=== PATIENT | female | born 1950 | race Caucasian/White ===

== ENCOUNTER → 2017-01-19 | Day surgery (SDC) | payer MEDICARE ==
--- NOTE | 2017-01-06 21:57 | CR ---
DATE OF CONSULTATION: 01/19/[address] Bear, Thank you for asking me to see Ms. Earlene Birch in consultation prior to her gynecologic surgery. As you know, Ms. Birch is a 66-year-old female with past medical history of breakthrough bleeding, hiatal hernia, gastroesophageal reflux disease (GERD), anxiety, who had presented earlier this year with recurrence of her breakthrough bleeding previously evaluated in 2012. She reports that she has had no further breakthrough bleeding since that time. An ultrasound was done and further evaluation was recommended by Dr. Bear. The patient denies any fevers or chills, chest pain or shortness of breath. She reports that she has been healthy. The patient has gastroesophageal reflux disease. She has been able to wean off omeprazole, takes TUMS as needed. The patient has vaginal atrophy, uses Vagifem and Replens with good results. The patient has a history of anxiety. She is on venlafaxine. She is comfortable proceeding with surgical intervention, as she has had this evaluation previously. The patient otherwise reports that she is active and denies any fevers or chills, chest pain or shortness of breath, nausea, vomiting, change in bowels. PAST MEDICAL HISTORY: 1. (G) 2, para (P) 2, spontaneous vaginal delivery. 2. Fibrocystic breast disease. 3. Hematuria. She has been released from urology. She has had extensive evaluation, including cystoscopy, CAT scan imaging, most recently in 2014. 4. Dysphasia, negative with resolution. 5. Possible transient ischemic attack (TIA). No recurrence. 6. Previous history of tobacco abuse. 7. Esophagitis, status post esophagogastroduodenoscopy (EGD) in December of 2009 with dilatation. 8. Generalized anxiety disorder. 9. Abnormal EKG with a normal stress test in 2007. 10. Prehypertension. 11. Breakthrough bleeding, status post dilation and curettage, hysteroscopy, polyp removal 05/23/[address] Bear. 13. L2-3 hemangioma per MRI 09/23/2005. 14. Cataract extractions in 2016. The patient's medications: - 2-3 times a week - probiotic weekly - calcium plus D twice a day - baby aspirin daily - vitamin D3 2000 international units daily - venlafaxine 75 mg one daily - Vagifem two tablets a week DRUG ALLERGIES: None, only nickel. FAMILY HISTORY: Father had a heart attack in his 70s. Mother had hypertension, cervical cancer, heart attack in her 60s. Brother had hypertension, Parkinson's disease. A sister had bladder. Cousin with ovarian cancer. SOCIAL HISTORY: Former smoker, quit in 1999. Social use of alcohol. PHYSICAL EXAMINATION: Thin female in no acute distress. VITAL SIGNS: Weight 118 with a body mass index (BMI) of 25, oxygen saturation is 98%, blood pressure 136/82, heart rate is 85. HEENT: Head is normocephalic. Neck is supple. Pupils are equal and reactive to light. Extraocular movements are intact. Conjunctivae not injected. Sclerae anicteric. She does wear eyeglasses. Tympanic membranes slightly dull. Posterior pharynx without inflammation. NECK: Supple. No thyromegaly, jugular venous distention (JVD), carotid bruits or cervical lymphadenopathy. RESPIRATORY: Slight decrease in breath sounds throughout. BREAST EXAMINATION: Deferred. CARDIOVASCULAR: Barely audible systolic murmur. ABDOMEN: Normoactive bowel sounds, soft, nontender. No hepatosplenomegaly. GYNECOLOGIC: Deferred. EXTREMITIES: Peripheral pulses are palpable, some early osteoarthritis (OA) changes. NEUROLOGIC: Alert and oriented. Cranial nerves II-XII are intact. LABORATORY DATA: From my office 01/05/2017: Normal CBC, metabolic profile. EKG done in my office 01/05/2017 showed normal sinus rhythm, rate 85, axis of 17 degrees, with left bundle branch block, but EKG is overall unchanged from previous EKG from 10/07/1015. IMPRESSION: Ms. Earlene Birch is a 66-year-old female with cardiovascular risk factors positive for age, family history, diet-controlled hypertension, hyperlipidemia, hyperglycemia, has no signs or symptoms indicative of cardiovascular ischemia and is felt to be at low risk for cardiovascular complications from the proposed surgical intervention which can be further minimized by the followin. Generalized anxiety disorder. Take venlafaxine the morning of surgery with a sip of water. 2. Hiatal hernia, gastroesophageal reflux disease (GERD). Controlled without pharmacologic therapy. Continue dietary intervention. She has had some recent dyspepsia. She had been on fish oil and I discontinued this. She will continue with probiotic. 3. Hyperglycemia, resolved with dietary intervention, commended. 4. Prehypertension. Controlled with diet, exercise, salt restriction. 5. Hyperlipidemia. Continue diet, exercise, recheck annually. Hold aspirin five days prior to surgical intervention. 6. Vaginal atrophy. Continue Replens and Vagifem perioperatively. Thank you very much for this consultation. Again, please call with any questions or concerns.
[~2017-01-19] VITALS: Ht 147.3 cm; Wt 8.2 kg
[~2017-01-19] MED LIST: ASPI81TA85 PO; CALC600T57 PO; ESTR25TD TD; GLYCOPYRROLATE INJ 0.2 MG/ML 2 ML VIAL As Ordered ONE; IBUPROFEN 600 MG TAB PO PRN; KETOROLAC 60 MG/2 ML VIAL (J1885) As Ordered ONE; LIDOCAINE 2% INJ 100 MG/5 ML SDV (FOR ANES.) As Ordered ONE; LR 1,000 ML IV SCH; MIDAZOLAM INJ 2 MG/2 ML VIAL (J2250) As Ordered ONE; NEOSTIGMINE 1MG/ML 5 ML SYRINGE (J2710) As Ordered ONE; NORCO, ANEXSIA 5/325MG TABLET (HYDROcodone/ACETAMINOPHEN) PO PRN; ONDANSETRON 4MG/2ML VIAL (J2405) As Ordered ONE; ONDANSETRON 4MG/2ML VIAL (J2405) IV PRN; PROBCAP4 PO; PROPOFOL 200 MG/20 ML VIAL As Ordered ONE; REPLGEL VA; ROCURONIUM BROMIDE 50 MG/5 ML VIAL As Ordered ONE; VAGI10TA; VENL75CA PO; VITA2000 PO; fentaNYL 100 MCG/2 ML INJECTION (J3010) As Ordered ONE; fentaNYL 100 MCG/2 ML INJECTION (J3010) IV PRN
--- NOTE | 2017-01-19 12:37 | RO ---
DATE OF PROCEDURE: 01/19/2017 PREPROCEDURE DIAGNOSES/INDICATION FOR SURGERY: Postmenopausal bleeding, thickened endometrium by ultrasound. POSTPROCEDURE DIAGNOSES: Postmenopausal bleeding, thickened endometrium by ultrasound, and posterior uterine polyp. PROCEDURE: Dilatation and curettage, MyoSure resection. SURGEON: Dr. Joaquina Bear SHIP CEILER: ANESTHESIA: General endotracheal anesthesia. ESTIMATED BLOOD LOSS: BRIEF DESCRIPTION OF PROCEDURE AND FINDINGS: Earlene was brought to the operating room where sufficient general endotracheal anesthesia was induced and she was prepped, draped and positioned in the usual sterile fashion, but she is 66 years old and has significant atrophy and so we did not place a weighted, nor even the Wink, but just used deeper because of the narrower profile was more appropriate for her. We emptied the bladder and grasped the anterior aspect of the cervix with a single tooth tenaculum. She has a retroverted uterus, which is actually turned almost 180 degrees on its axis, twisted a little bit, certainly not all that unusual, but we were able to dilate with ease and then place the scope and some of the pictures are with the scope simply held at a 50 degree angle just to get that orientation for ease for orientation for me because of course there is no import for her whatsoever if there is a slight angle to the uterus. I certainly did not see any scarring or indication that there was any actual problem causing this and it is mobile bimanual and it is just quite little and every time you rotate the scope the uterus would move a bit with it as well, most likely because of atrophic changes and the fact that it is just not that big of a uterus in the first place, although it sounded to 7 so it is not unusually small either. With the scope, we were able to see normal tubal ostia and significant atrophy at the fundus, but no endometrial lesions at the fundus. In the lower uterine segment posteriorly there is a small polyp. This had a smooth surface but not particularly vascular. We were able with the MyoSure light to completely resect this lesion, which is documented in the operative photos and send this tissue to the pathologist, but it was not particularly vascular and not particularly hyperplastic in appearance, but relatively small and, if anything, a little bit fibrous as we resected it so certainly not an alarming appearance, but there definitely was a lesion and we were able to completely remove this. We were also able to sample the endometrium under direct visualization, so there is not much tissue there, but we did get a sample of what is there. We then undertook curettage, which also came back with scant tissue consistent with what we had already seen, and then we ended the procedure. Estimated blood loss for the procedure was about 2 mL. Fluid replacement was Crystalloid. COMPLICATIONS: None. CONDITION AND DISPOSITION: Earlene tolerated the procedure well and was recovering in the recovery room in good condition.
[2017-01-19 15:00] VITALS: BP 117/61
== END | disposition home or self-care (01) ==
LOC: M SDC 08:44
PROVIDERS: ATTEND Obstetrics & Gynecology
DX: N95.0 Postmenopausal bleeding (principal); R93.8 Abnormal findings on diagnostic imaging of other specified body structures; N84.0 Polyp of corpus uteri; K21.9 Gastro-esophageal reflux disease without esophagitis; F41.9 Anxiety disorder, unspecified; M12.9 Arthropathy, unspecified; Z79.899 Other long term (current) drug therapy; Z79.82 Long term (current) use of aspirin; Z86.73 Personal history of transient ischemic attack (TIA), and cerebral infarction without residual deficits; Z96.1 Presence of intraocular lens; Z87.891 Personal history of nicotine dependence
CPT/HCPCS: 58558; 88305; J1885; J2250; J2405; J2710; J3010

== ENCOUNTER → 2017-07-10 | Outpatient (REF) | payer MEDICARE ==
[~2017-07-10] MED LIST changes: -GLYCOPYRROLATE INJ 0.2 MG/ML 2 ML VIAL As Ordered ONE; -IBUPROFEN 600 MG TAB PO PRN; -KETOROLAC 60 MG/2 ML VIAL (J1885) As Ordered ONE; -LIDOCAINE 2% INJ 100 MG/5 ML SDV (FOR ANES.) As Ordered ONE; -LR 1,000 ML IV SCH; -MIDAZOLAM INJ 2 MG/2 ML VIAL (J2250) As Ordered ONE; -NEOSTIGMINE 1MG/ML 5 ML SYRINGE (J2710) As Ordered ONE; -NORCO, ANEXSIA 5/325MG TABLET (HYDROcodone/ACETAMINOPHEN) PO PRN; -ONDANSETRON 4MG/2ML VIAL (J2405) As Ordered ONE; -ONDANSETRON 4MG/2ML VIAL (J2405) IV PRN; -PROPOFOL 200 MG/20 ML VIAL As Ordered ONE; -ROCURONIUM BROMIDE 50 MG/5 ML VIAL As Ordered ONE; -VENL75CA PO; +VENL75CA2 PO; -fentaNYL 100 MCG/2 ML INJECTION (J3010) As Ordered ONE; -fentaNYL 100 MCG/2 ML INJECTION (J3010) IV PRN
== END ==
LOC: M LAB REF 12:40
PROVIDERS: ATTEND Internal Medicine
DX: R31.9 Hematuria, unspecified (principal)

== ENCOUNTER → 2018-01-05 | Outpatient (REF) | payer MEDICARE ==
[2018-01-05 12:25] LABS: APPEARANCE, URINE CLEAR (CLEAR); BACTERIA, URINE AUTO NEGATIVE (NEGATIVE); BILIRUBIN, URINE AUTO NEGATIVE (NEGATIVE); BLOOD, URINE BLOOD 2+ (NEGATIVE); COLOR, URINE STRAW (YELLOW); GLUCOSE, URINE (UA) AUTO NEGATIVE (NEGATIVE); KETONE, URINE AUTO NEGATIVE (NEGATIVE); LEUKOCYTE ESTERASE, URINE AUTO 2+ (NEGATIVE); NITRITE, URINE AUTO NEGATIVE (NEGATIVE); PROTEIN, URINE AUTO NEGATIVE (NEGATIVE); RBC, URINE AUTO 3 /HPF (0-3); SPECIFIC GRAVITY URINE AUTO 1.003 (1.002-1.035); SQUAMOUS EPITHELIAL CELL UR AU 2 /HPF (0-6); UROBILINOGEN, URINE AUTO 0.2 mg/dL (0.0-2.0); WBC, URINE AUTO 17 /HPF (0-3)
== END ==
LOC: M LAB REF 12:04
DX: R31.9 Hematuria, unspecified (principal)
CPT/HCPCS: 81001

== ENCOUNTER → 2018-07-12 | Outpatient (REF) | payer MEDICARE ==
[2018-07-12 12:42] LABS: BACTERIA, URINE AUTO NEGATIVE (NEGATIVE); RBC, URINE AUTO 20 /HPF (0-3); SQUAMOUS EPITHELIAL CELL UR AU 0 /HPF (0-6); WBC, URINE AUTO 1 /HPF (0-3)
== END ==
LOC: M LAB REF 11:58
DX: R31.9 Hematuria, unspecified (principal)
CPT/HCPCS: 81015

== ENCOUNTER → 2020-07-22 | Outpatient (REF) | payer MEDICARE ==
[~2020-07-22] MED LIST changes: -ASPI81TA85 PO; +ASPI81TA86 PO
[2020-07-22 12:18] LABS: APPEARANCE, URINE HAZY (CLEAR); BACTERIA, URINE AUTO NEGATIVE (NEGATIVE); BILIRUBIN, URINE AUTO NEGATIVE (NEGATIVE); BLOOD, URINE BLOOD NEGATIVE (NEGATIVE); COLOR, URINE YELLOW (YELLOW); GLUCOSE, URINE (UA) AUTO NEGATIVE (NEGATIVE); KETONE, URINE AUTO NEGATIVE (NEGATIVE); LEUKOCYTE ESTERASE, URINE AUTO NEGATIVE (NEGATIVE); MUCUS, URINE SMALL (NEGATIVE); NITRITE, URINE AUTO NEGATIVE (NEGATIVE); PROTEIN, URINE AUTO NEGATIVE (NEGATIVE); RBC, URINE AUTO 28 /HPF (0-3); SQUAMOUS EPITHELIAL CELL UR AU 1 /HPF (0-6); UROBILINOGEN, URINE AUTO 0.2 mg/dL (0.0-2.0); WBC, URINE AUTO 5 /HPF (0-3)
== END ==
LOC: M LAB REF 11:31
PROVIDERS: ATTEND Internal Medicine
DX: R31.9 Hematuria, unspecified (principal)

== ENCOUNTER → 2021-09-01 | Outpatient (CLI) | payer MEDICARE | LOC: M WUC 14:41 | PROVIDERS: ATTEND Internal Medicine | DX: R09.02 Hypoxemia (principal); R50.9 Fever, unspecified ==

== ENCOUNTER → 2021-11-10 | Outpatient (CLI) | payer MEDICARE ==
[2021-11-10 14:09] LABS: ALBUMIN 3.4 GM/DL (3.2-5.2); ALT/SGPT 29 U/L (12-78); BILIRUBIN,TOTAL 0.8 MG/DL (0.2-1.0); BLOOD UREA NITROGEN 12 MG/DL (7-18); CALCIUM LEVEL 9.3 MG/DL (8.8-10.2); CARBON DIOXIDE LEVEL 29 MEQ/L (21-32); CHLORIDE LEVEL 108 MEQ/L (98-107); CHOLESTEROL LEVEL 191 MG/DL (<200); CHOLESTEROL RISK RATIO 2.768 (<5); CREATININE FOR GFR 0.89 MG/DL (0.55-1.30); GLOMERULAR FILTRATION RATE > 60.0 (>39); GLUCOSE, FASTING 88 MG/DL (70-100); HDL CHOLESTEROL 69 MG/DL (>40); LDL CHOLESTEROL 95 MG/DL (<100); NON-HDL-C 122 MG/DL; NT-PRO BNP 97 PG/ML (<125); POTASSIUM SERUM 4.1 MEQ/L (3.5-5.1); SODIUM LEVEL 144 MEQ/L (136-145); TOTAL PROTEIN 6.8 GM/DL (6.4-8.2); TRIGLYCERIDES LEVEL 134 MG/DL (<150)
== END ==
LOC: M WUC 09:14
PROVIDERS: ATTEND Internal Medicine Cardiovascular Disease
DX: R06.02 Shortness of breath (principal); E78.00 Pure hypercholesterolemia, unspecified; R03.0 Elevated blood-pressure reading, without diagnosis of hypertension

== ENCOUNTER → 2022-02-15 | Outpatient (CLI) | payer MEDICARE | LOC: M RAD 15:03 → M WHC 15:03 | PROVIDERS: ATTEND Internal Medicine | DX: G45.9 Transient cerebral ischemic attack, unspecified (principal) ==

== ENCOUNTER → 2022-03-03 | Outpatient (CLI) | payer MEDICARE ==
[2022-03-03 12:58] LABS: BASO # 0.1 10^3/uL (0.0-0.2); BASO % 0.6 % (0.0-1.0); EOS # 0.3 10^3/uL (0.0-0.5); EOS % 2.8 % (0.0-3.0); HEMATOCRIT 42.3 % (36.0-47.0); HEMOGLOBIN 14.3 g/dl (12.0-15.5); LYMPH # 2.2 10^3/uL (1.5-5.0); LYMPH % 22.9 % (24.0-44.0); MEAN CORPUSCULAR HEMOGLOBIN 32.4 pg (27.0-33.0); MEAN CORPUSCULAR HGB CONC 33.8 g/dl (32.0-36.5); MEAN CORPUSCULAR VOLUME 95.9 fl (80.0-96.0); MONO # 0.6 10^3/uL (0.0-0.8); MONO % 6.4 % (2.0-8.0); NEUTROPHILS # 6.6 10^3/uL (1.5-8.5); PLATELET COUNT, AUTOMATED 313 10^3/uL (150-450); RED BLOOD COUNT 4.41 10^6/uL (4.00-5.40); WHITE BLOOD COUNT 9.8 10^3/uL (4.0-10.0)
[2022-03-03 13:16] LABS: HEMOGLOBIN A1c 5.1 %
[2022-03-03 13:32] LABS: ALBUMIN 3.5 GM/DL (3.2-5.2); ALT/SGPT 23 U/L (12-78); BILIRUBIN,TOTAL 0.8 MG/DL (0.2-1.0); BLOOD UREA NITROGEN 19 MG/DL (7-18); CALCIUM LEVEL 9.5 MG/DL (8.8-10.2); CARBON DIOXIDE LEVEL 29 MEQ/L (21-32); CHLORIDE LEVEL 108 MEQ/L (98-107); CREATININE FOR GFR 0.79 MG/DL (0.55-1.30); GLOMERULAR FILTRATION RATE > 60.0 (>39); GLUCOSE, FASTING 83 MG/DL (70-100); RHEUMATOID FACTOR QUANT < 10.0 IU/ML (<15.0); SODIUM LEVEL 143 MEQ/L (136-145); TOTAL PROTEIN 7.1 GM/DL (6.4-8.2)
[2022-03-03 13:35] LABS: ERYTHROCYTE SEDIMENTATION RATE 12 mm/hr (0-30)
[2022-03-03 13:42] LABS: FOLATE > 24.0 NG/ML
[2022-03-03 13:47] LABS: VITAMIN B12 LEVEL 704 PG/ML
[2022-03-08 12:07] LABS: ANGIOTENSIN 1 CONVERTING ENZYM 49 U/L (14-82); ANTINUCLEAR ANTIBODIES DIRECT Negative (Negative); VITAMIN B1 LEVEL WHOLE BLOOD 168.3 nmol/L (66.5-200.0); VITAMIN B6,PYRIDOXAL PHOSPHATE 74.5 ug/L (3.4-65.2); VITAMIN E(ALPHA TOCOPHEROL) 14.2 mg/L (9.0-29.0); VITAMIN E(GAMMA TOCOPHEROL) 1.7 mg/L (0.5-4.9)
== END ==
LOC: M WUC 10:22
PROVIDERS: ATTEND Psychiatry & Neurology Neurology
DX: R25.1 Tremor, unspecified (principal); R94.02 Abnormal brain scan

== ENCOUNTER → 2022-05-12 | Outpatient (CLI) | payer MEDICARE | LOC: M WHC 13:10 | PROVIDERS: ATTEND Internal Medicine | DX: Z12.31 Encounter for screening mammogram for malignant neoplasm of breast (principal); M81.0 Age-related osteoporosis without current pathological fracture; M85.851 Other specified disorders of bone density and structure, right thigh; M85.852 Other specified disorders of bone density and structure, left thigh ==

== ENCOUNTER → 2024-05-14 | Outpatient (CLI) | payer MEDICARE | LOC: M WHC 12:54 | PROVIDERS: ATTEND Internal Medicine | DX: Z12.31 Encounter for screening mammogram for malignant neoplasm of breast (principal); M85.89 Other specified disorders of bone density and structure, multiple sites; R92.323 Mammographic fibroglandular density, bilateral breasts ==